=== PATIENT | female | born 1940 | race Caucasian/White ===

== ENCOUNTER → 2019-05-17 | Outpatient (CLI) | payer OTHER | END | disposition home or self-care (01) | LOC: NUCLEAR 11:00 | DX: M81.0 Age-related osteoporosis without current pathological fracture (principal) ==

== ENCOUNTER 2021-07-27 14:12 | Outpatient (CLI) | payer OTHER | END 2021-07-27 14:24 | disposition home or self-care (01) | LOC: NUCLEAR 14:12 | DX: M81.0 Age-related osteoporosis without current pathological fracture (principal) ==

== ENCOUNTER 2021-07-27 15:02 | Outpatient (CLI) | payer OTHER | END 2021-07-27 15:14 | disposition home or self-care (01) | LOC: RAD 15:02 | DX: R07.89 Other chest pain (principal) ==

== ENCOUNTER 2023-07-29 13:34 | Outpatient (CLI) | payer OTHER | END 2023-07-29 13:37 | disposition home or self-care (01) | LOC: NUCLEAR 13:34 | PROVIDERS: ATTEND Family Medicine Geriatric Medicine | DX: M81.0 Age-related osteoporosis without current pathological fracture (principal) ==